=== PATIENT | male | born 1985 | race Caucasian/White ===

== ENCOUNTER 2017-05-26 09:31 | Inpatient (IN) | payer OTHER ==
[~2017-05-26] VITALS: Ht 162.6 cm; Wt 86.5 kg
[2017-05-26] MEDS ORDERED: DULO60 PO (09:55)
[2017-05-26] MEDS ORDERED: BUPR100 PO (09:55)
[2017-05-26] MEDS ORDERED: HYDPAM50 PO (09:57)
[2017-05-26] MEDS ORDERED: MIRT15 PO (09:58)
[2017-05-26] MEDS ORDERED: TRAZ100 PO (09:58)
[2017-05-26] MEDS ORDERED: IBUP600 PO (16:12)
== END 2017-05-26 16:52 | disposition home or self-care (01) | DRG 340 ==
LOC: ER 09:31 → SURS 14:08
PROVIDERS: Surgery
PROC: 0DTJ4ZZ Resection of Appendix, Percutaneous Endoscopic Approach (ICD-10-PCS; principal; 2017-05-26 11:30)
DX: K35.3 Acute appendicitis with localized peritonitis (principal)
CPT/HCPCS: 88304; 96374; 96375; 96376; 99285; J1100; J1170; J1885; J2405; J2710; J7120